=== PATIENT | male | born 1990 | race Caucasian/White ===

== ENCOUNTER 2017-12-28 17:56 | Emergency (ER) | payer BC ==
--- NOTE | 2017-12-28 18:48 | EDM.PDOC ---
ED HPI GENERAL MEDICAL PROBLEM - General Chief Complaint: ENT Problem Stated Complaint: TOOTH PAIN Time Seen by Provider: 12/28/17 18:33 Source of Information: Reports: Patient History Limitations: Reports: No Limitations - History of Present Illness INITIAL COMMENTS - FREE TEXT/NARRATIVE: 27 year old male presents for evaluation and treatment of tooth pain. Reports the tooth broke several months ago but the pain has steadily worsened and over the last month has become more severe. Taking tylenol and motrin with no relief. Does not recall last dental visit. Does not have a current dental visit. Reports pain into the left upper molar that radiates into left ear and sinuses. Reports a foul taste in his mouth at times. No recent fevers, chills, nausea or vomiting. Tooth/Teeth Pain Score (Numeric/FACES): 8 - Related Data Allergies Allergy/AdvReac Type Severity Reaction Status Date / Time No Known Allergies Allergy Verified 12/28/17 18:06 Home Meds: Home Meds Acetaminophen/oxyCODONE [Percocet 325-5 MG] 1 tab PO Q4HR PRN #20 tab 12/28/17 [ Rx] Amoxicillin/Clavulanate K [Augmentin 875-125 MG] 1 tab PO BID #20 tablet [Rx] Past Medical History - Past Health History Medical/Surgical History: Denies Medical/Surgical History Social & Family History - Tobacco Use Smoking Status *Q: Current Every Day Smoker Years of Tobacco use: 15 Packs/Tins Daily: 1 Used Tobacco, but Quit: No Second Hand Smoke Exposure: No - Caffeine Use Caffeine Use: Reports: Coffee, Energy Drinks - Recreational Drug Use Recreational Drug Use: No ED ROS ENT - Review of Systems Review Of Systems: See Below Constitutional: Denies: Fever, Chills HEENT: Reports: Dental Pain (left upper molar) GI/Abdominal: Denies: Nausea, Vomiting Neurological: Reports: Dizziness ED EXAM, ENT - Physical Exam Exam: See Below Exam Limited By: No Limitations General Appearance: Alert, WD/WN, No Apparent Distress Ears: Normal External Exam, Normal Canal, Hearing Grossly Normal, TM Erythema ( left) Nose: Normal Inspection Mouth/Throat: Normal Inspection, Normal Lips, Normal Oropharynx, Dental Abcess ( #14), Dental Tenderness (#14), Gum Swelling (#14), Other (multiple dental carries throughout) Neck: Normal Inspection Respiratory/Chest: No Respiratory Distress, Lungs Clear, Normal Breath Sounds Cardiovascular: Normal Peripheral Pulses, Regular Rate, Rhythm, No Murmur Neurological: Alert, Oriented, Normal Cognition Psychiatric: Normal Affect, Normal Mood Skin: Warm, Dry, Normal Color Course - Vital Signs Last Recorded V/S: Last Vital Signs Temp 36.6 C 12/28/17 18:02 Pulse 84 12/28/17 18:02 Resp 16 12/28/17 18:02 BP 151/93 H 12/28/17 18:02 Pulse Ox 100 12/28/17 18:02 Departure - Departure Time of Disposition: 18:43 Disposition: Home, Self-Care 01 Condition: Fair Clinical Impression: Dental abscess - Discharge Information Prescriptions: Acetaminophen/oxyCODONE [Percocet 325-5 MG] 1 tab PO Q4HR PRN #20 tab PRN Reason: Pain Amoxicillin/Clavulanate K [Augmentin 875-125 MG] 1 tab PO BID #20 tablet Instructions: Dental Abscess, [id number] Referrals: PCP,None [Primary Care Provider] - Forms: ED Department Discharge Additional Instructions: augmentin 1 tab PO bid x 10 days. Take this medication with food. Recommend yogurt or a probiotic to help reduce side effects of upset stomach, nausea and diarrhea. OTC tyelenol and motrin as needed for pain. For pain not relieved by Tylenol or Motrin he may take Percocet 1-2 tabs every 4-6 hours as needed for severe pain. Do not drive or operative machinery within 12 hours of taking the Percocet. Percocet can be habit-forming, I recommend you take as few of these as needed control your pain. Do not take more than 4 g of Tylenol from all sources in 1 day. Do not take more than 3200 mg of ibuprofen from all sources one day. may also try [id number] clove oil for additional symptom relief. Just apply topically to the surrounding area. See a dentist as soon as you able to. Please return to the ER if your symptoms change or worsen.
== END 2017-12-28 18:59 | disposition home or self-care (01) ==
LOC: JD.ED 17:56
DX: K04.7 Periapical abscess without sinus (principal); F17.210 Nicotine dependence, cigarettes, uncomplicated
CPT/HCPCS: 99283